=== PATIENT | female | born 1965 | race Two or more races ===

== ENCOUNTER 2024-04-27 14:14 | Emergency (ER) | payer MEDICAID, SELFPAY ==
[~2024-04-27] VITALS: Ht 165.1 cm; Wt 113.0 kg
--- NOTE | 2024-04-27 16:24 | ED.PDOC ---
Eye-HPI HPI Comments 58 y.o female presents to the ED for a chief complaint of right eye redness associated with tenderness x 3 days and discharge x today. Patient reports worsening tenderness today, states no recent eye trauma or bleeding. Patient denies any previous eye infections, fever or chills. Patient denies any change in vision. Vital signs were stable at arrival. Chief Complaint: Eye Problem Time Seen by MD: 16:16 Reviewed Notes: Nurses Notes, Medications, Allergies Allergies: Coded Allergies: NO KNOWN ALLERGIES (Unverified , 04/27/24) Information Source: Patient Mode of Arrival: Ambulatory Timing: Days (3) Duration: Since onset Quality: Pain, Red, Discharge Eye Location: Right Lids: Red, Tender, Discharge Conjunctiva: Injection Onset: Spontaneous Associated signs and symptoms: Discharge Past Medical History PAST MEDICAL HISTORY: Denies Surgical History: Denies all surgeries DIRECTOR DATABASE History: No Pertinent DIRECTOR DATABASE History Family History Family History: Reviewed,noncontributory to illness Social History Smoker: Non-Smoker Alcohol: Denies ETOH Use Drugs: Denies Drug Use Lives In: Home Constitutional: denies: chills, diaphoresis, fatigue, fever, malaise, sweats, weakness, others EENTM: reports: eye pain, eye redness; denies: blurred vision, double vision, ear bleeding, ear discharge, ear drainage, ear pain, ear ringing, hearing loss, mouth pain, mouth swelling, nasal discharge, nose bleeding, nose congestion, nose pain, photophobia, tearing, throat pain, throat swelling, voice changes, others Respiratory: denies: cough, hemoptysis, orthopnea, SOB at rest, shortness of breath, SOB with excertion, stridor, wheezing, others Cardiovascular: denies: chest pain, dizzy spells, diaphoresis, Dyspnea on exertion, edema, irregular heart beat, left arm pain, lightheadedness, palpitations, PND, syncope, others Gastrointestinal: denies: abdomen distended, abdominal pain, blood streaked bowels, constipated, diarrhea, dysphagia, difficulty swallowing, hematemesis, melena, nausea, poor appetite, poor fluid intake, rectal bleeding, rectal pain, vomiting, others Genitourinary: denies: abnormal vagina bleeding, burning, dyspareunia, dysuria, flank pain, frequency, hematuria, incontinence, pain, , vagina discharge, urgency, others Neurological: denies: dizziness, fainting, headache, left sided numbness, left sided weakness, numbness, paresthesia, pre-existing deficit, right sided numbness, right sided weakness, seizure, speech problems, tingling, tremors, weakness, others Musculoskeletal: denies: back pain, gout, joint pain, joint swelling, muscle pain, muscle stiffness, neck pain, others Integumetry: denies: bruises, change in color, change in hair/nails, dryness, laceration, lesions, lumps, rash, wounds, others Allergic/Immunocompromised: denies: Difficulty Healing, Frequent Infections, Hives, Itching, others Hematologic/Lymphatic: denies: anemia, blood clots, easy bleeding, easy bruising, swollen glands, others Endocrine: denies: excessive hunger, excessive sweating, excessive thirst, excessive urination, flushing, intolerance to cold, intolerance to heat, u nexplained weight gain, unexplained weight loss, others Psychiatric: denies: anxiety, bipolar disorder, depression, hopeless, panic disorder, schizophrenia, sleepless, suicidal, others All Other Systems: Reviewed and Negative Physical Exam General Appearance: Moderate Distress (Peti-ir-dbbynksi distress due to right eye concerns.), Normal HEENT: Pharynx Normal, TMs Normal, Other (Diffuse scleral injection noted in right eye with superior and inferior lid displaying mild edema. Ropey and greenish discharge noted. PERRLA, EOMI.) Neck: Full Range of Motion, Non-Tender, Normal, Normal Inspection Respiratory: Chest Non-Tender, Lungs Clear, No Accessory Muscle Use, No Respiratory Distress, Normal Breath Sounds Cardiovascular: No Edema, No JVD, No Murmur, No Gallop, Normal Peripheral Pulses, Regular Rate/Rhythm Breast Exam: Deferred Gastrointestinal: No Organomegaly, Non Tender, No Pulsatile Mass, Normal Bowel Sounds, Soft Genitalia: Deferred Pelvic: Deferred Rectal: Deferred Extremities: No calf tenderness, Normal capillary refill, Normal inspection, Normal range of motion, Non-tender, No pedal edema Neurologic: Alert, No Motor Deficits, Normal Affect, Normal Mood, No Sensory Deficits Cerebellar Function: Normal Reflexes: Normal Skin: Dry, Normal Color, Warm Lymphatic: No Adenopathy Was a procedure done? Was a procedure done?: No EENT DIFF Eye: Conjunctivitis, Bacterial, Viral X-Ray, Labs, Meds, VS Vital Signs Date Time Temp Pulse Resp B/P (MAP) Pulse Ox O2 Delivery O2 Flow Rate FiO2 04/27/24 15:19 98.0 98 20 153/72 (99) 96 X-Ray, Labs, Meds, VS Comment At that she is experiencing a bacterial conjunctivitis event. Advised patient utilize antibiotic eyedrops as directed until completion. Patient can utilize Tylenol and or Motrin as needed for discomfort relief. Advised daily bedding changes and good hand hygiene. Time of 1ST Reevaluation: 16:57 Reevaluation 1ST: Unchanged Consultation: PCP Patient Education/Counseling: Diagnosis, Treatment, Prognosis Family Education/Counseling: Diagnosis, Treatment, No Family Present Departure 1 Departure Time of Disposition: 16:58 Impression: Primary Impression: Bacterial conjunctivitis Disposition: HOME / SELF CARE / HOMELESS Condition: Stable Additional Instructions: Advised patient utilize antibiotic eye drops as directed until completion. Tylenol and or Motrin as needed for discomfort relief. Advised daily bedding changes and good hand hygiene. e-Prescriptions Acetaminophen (Acetaminophen) 500 Mg Tab 500 MG PO Q4HP PRN, #30 TAB Prov: SMITHA WILSON PAC 04/27/24 Azithromycin (Ophth) (Azasite) 1 % Magali 2 DROP RIGHTEYE BID for 7 Days, #2.5 ML 0 Refills Prov: SMITHA WILSON PAC 04/27/24 Discharged With: Self, Friend Critical Care Note Critical Care Time?: No Stability Stability form required: No I personally scribed for SMITHA WILSON PAC ([email or web address]) on 04/27/24 at 16:24. Electronically submitted by Matilde Evangelista ([facility]). SMITHA WILSON PAC Apr 27, 2024 16:24
[2024-04-27] MEDS ORDERED: AZIT4SOL RIGHTEYE (16:59)
[2024-04-27] MEDS ORDERED: ACET500T58 PO (17:00)
[2024-04-27 17:38] VITALS: BP 153/72; PULSE 98; RESP 20; TEMP 98; O2SAT 96
== END 2024-04-27 17:38 | disposition home or self-care (01) ==
LOC: ER 14:14
DX: H10.89 Other conjunctivitis (principal)